=== PATIENT | female | born 1990 | race African-American/Black ===

== ENCOUNTER 2018-03-14 17:49 | Emergency (ER) | payer MEDICAID ==
[~2018-03-14] VITALS: Ht 162.6 cm; Wt 76.4 kg
[2018-03-14 20:20] VITALS: BP 130/88
== END 2018-03-14 20:35 | disposition home or self-care (01) ==
LOC: ER 19:00
DX: J06.9 Acute upper respiratory infection, unspecified (principal); R05 Cough; R22.41 Localized swelling, mass and lump, right lower limb
CPT/HCPCS: 71045; 81025; 93970; 99284